=== PATIENT | male | born 1945 | race Caucasian/White ===

== ENCOUNTER 2017-08-18 08:48 | Inpatient (IN) | payer MEDICARE, OTHER ==
[~2017-08-18 08:48] MED LIST: CEFAZOLIN 1 GM INJ; ROCURONIUM 50 MG INJ
[2017-08-18] MEDS ORDERED: LACTATED RINGER'S 1,000 ML IV* (10:00)
[2017-08-18] MEDS: CEFAZOLIN 2 GM/50 ML (PMX) 50 ML IVPB (10:00)
[2017-08-18] MEDS ORDERED: CA CHLORIDE 10% 10 ML SYRINGE (12:01)
[2017-08-18] MEDS ORDERED: HEPARIN 1000 UNITS/ML 10 ML INJ (12:01)
[2017-08-18] MEDS ORDERED: SUCCINYLCHOLINE CHLORIDE 100 MG/5 ML SYG IV (12:08)
[2017-08-18] MEDS ORDERED: PROPOFOL 20 ML (12:08)
[2017-08-18] MEDS ORDERED: LIDOCAINE 1% (MDV) 20 ML INJ (12:09)
[2017-08-18] MEDS ORDERED: MIDAZOLAM 1 MG/ML 2 ML INJ (12:09)
[2017-08-18] MEDS ORDERED: FAMOTIDINE 20 MG INJ (12:14)
[2017-08-18] MEDS ORDERED: ONDANSETRON 4 MG INJ (12:14)
[2017-08-18] MEDS ORDERED: DEXAMETHASONE 4 MG/ML 1 ML INJ (12:14)
[2017-08-18] MEDS: CEFAZOLIN 1 GM/50 ML (PMX) 50 ML IVPB ×2 (12:30→20:18)
[2017-08-18] MEDS ORDERED: CEPASTAT LOZENGE MT (12:30)
[2017-08-18] MEDS ORDERED: ONDANSETRON 4 MG INJ IV ×2 (12:30→14:30)
[2017-08-18] MEDS ORDERED: CARISOPRODOL 350 MG TAB PO (12:30)
[2017-08-18] MEDS ORDERED: HYDROmorphONE 0.5 MG/0.5 ML SYG IV (12:30)
[2017-08-18] MEDS ORDERED: ACETAMINOPHEN 325 MG TAB PO (12:30)
[2017-08-18] MEDS ORDERED: traMADol 50 MG TAB PO (12:30)
[2017-08-18] MEDS ORDERED: NALOXONE (0.4 MG/ML) INJ IV (12:30)
[2017-08-18] MEDS ORDERED: DIPHENHYDRAMINE 50 MG INJ IV (12:30)
[2017-08-18] MEDS ORDERED: EPHEDrine 50 MG INJ (12:53)
[2017-08-18] MEDS: BUPIVACAINE 0.25% (MPF) 30 ML INJ (13:20)
[2017-08-18] MEDS: BUPIVACAINE 0.5%/EPI (SDV) 30 ML INJ (13:20)
[2017-08-18] MEDS: POLYMYXIN/BACITRACIN 1L IRRIG (13:21)
[2017-08-18] MEDS: SURGIFOAM POWDER 1 GM KIT (13:21)
[2017-08-18] MEDS: THROMBIN 5000 UNIT VIAL (13:22)
[2017-08-18] MEDS ORDERED: SUGAMMADEX SODIUM 200 MG/2 ML VIAL IV (14:30)
[2017-08-18] MEDS ORDERED: LABETALOL HCL 20MG INJ IV (14:30)
[2017-08-18] MEDS ORDERED: hydrALAzine 20 MG INJ IV (14:30)
[2017-08-18] MEDS ORDERED: OXYCODONE/ACETAMINOPHEN (5/325) TAB PO (14:30)
[2017-08-18] MEDS: HYDROmorphONE 1 MG/5 ML IV SYRINGE IV ×3 (15:03→15:19)
[2017-08-18] MEDS: HYDROmorphONE 0.2 MG/ML PCA IV (15:08)
[2017-08-18] MEDS: D5W-0.45 NACL + KCL 20 MEQ 1,000 ML IV ×2 (16:55→22:44)
[2017-08-18] MEDS: MAGNESIUM OXIDE 400 MG TAB PO (19:23)
[2017-08-18] MEDS ORDERED: PANTOPRAZOLE (EC) 40 MG TAB PO (20:30)
[2017-08-18] MEDS: TERAZOSIN 5 MG CAP PO (21:00)
[2017-08-18] MEDS: ATORVASTATIN 40 MG TAB PO (21:00)
[2017-08-18] MEDS: SODIUM CHLORIDE 5% 2.5 GM OPH OINT BOTH EYES (21:00)
[2017-08-18] MEDS: DOCUSATE SODIUM 100 MG CAP PO (22:42)
[2017-08-18] MEDS: clonAZEPAM 0.5 MG TAB PO (22:43)
[2017-08-18] MEDS: SODIUM CHLORIDE 5% BOTH EYES (22:43)
[2017-08-18] MEDS: hydrOXYzine PAMOATE 25 MG CAP PO (22:44)
[2017-08-18] MEDS: ZOLPIDEM 5 MG TAB PO (22:48)
[2017-08-18] MEDS: AL HYDROX/MG HYDROX/SIMETH 30 ML CUP PO (22:48)
[2017-08-18] MEDS ORDERED: hydrOXYzine PAMOATE 25 MG CAP PO (23:00)
[2017-08-19] MEDS: CEFAZOLIN 1 GM/50 ML (PMX) 50 ML IVPB (04:19)
[2017-08-19 05:40] LABS: ADD MAN DIFF? NO
[2017-08-19 05:42] LABS: BASOPHILS % 0.2 % (0.0-2.0); EOSINOPHILS % 0.2 % (0.0-7.0); HEMATOCRIT 36.5 % (42.0-52.0); HEMOGLOBIN 12.2 g/dl (14.0-18.0); LYMPHOCYTES # 1.3 10^3/ul (0.8-2.9); LYMPHOCYTES % 10.4 % (15.0-51.0); MEAN CORPUSCULAR HEMOGLOBIN 31.7 pg (29.0-33.0); MEAN CORPUSCULAR HGB CONC 33.4 g/dl (32.0-37.0); MEAN CORPUSCULAR VOLUME 94.8 fl (82.0-101.0); MEAN PLATELET VOLUME 10.4 fl (7.4-10.4); MONOCYTE # 1.1 10^3/ul (0.3-0.9); MONOCYTES % 8.5 % (0.0-11.0); NEUTROPHILS % 80.1 % (39.0-77.0); PLATELET COUNT 170 10^3/UL (140-415); RED BLOOD COUNT 3.85 10^6/ul (4.70-6.10); RED CELL DISTRIBUTION WIDTH 12.2 % (11.5-14.5)
[2017-08-19 05:42] LABS: WHITE BLOOD COUNT 12.5 10^3/ul (4.8-10.8)
[2017-08-19] MEDS: PANTOPRAZOLE (EC) 40 MG TAB PO (06:03)
[2017-08-19 06:14] LABS: ANION GAP 13 (8-16); BLOOD UREA NITROGEN 21 mg/dl (7-20); CALCIUM 8.5 mg/dl (8.4-10.2); CARBON DIOXIDE 29 mmol/L (21-31); CHLORIDE 104 mmol/L (97-110); CREATININE 0.83 mg/dl (0.61-1.24); GLUCOSE 118 mg/dl (70-220); MAGNESIUM 2.2 mg/dl (1.7-2.5); POTASSIUM 4.2 mmol/L (3.5-5.1); SODIUM 142 mmol/L (135-144)
[2017-08-19] MEDS: D5W-0.45 NACL + KCL 20 MEQ 1,000 ML IV (08:15)
[2017-08-19] MEDS ORDERED: CALCIUM/VITAMIN D (500/200) TAB PO ×2 (09:00→21:00)
[2017-08-19] MEDS: hydrOXYzine PAMOATE 25 MG CAP PO (09:00)
[2017-08-19] MEDS ORDERED: hydrOXYzine PAMOATE 25 MG CAP PO (09:00)
[2017-08-19] MEDS ORDERED: MULTIVITAMINS THERAPEUTIC TAB PO ×2 (09:00→21:00)
[2017-08-19] MEDS: FUROSEMIDE 20 MG TAB PO (10:05)
[2017-08-19] MEDS: clonAZEPAM 0.5 MG TAB PO (10:05)
[2017-08-19] MEDS: ATORVASTATIN 40 MG TAB PO (10:10)
[2017-08-19] MEDS: LOSARTAN 25 MG TAB PO (10:13)
[2017-08-19] MEDS: DOCUSATE SODIUM 100 MG CAP PO (10:14)
[2017-08-19] MEDS: LORATADINE 10 MG TAB PO (10:15)
[2017-08-19] MEDS: FOLIC ACID 1 MG TAB PO (10:15)
[2017-08-19] MEDS: traMADol 50 MG TAB PO (10:16)
[2017-08-19] MEDS: POTASSIUM CHLORIDE (SR) 10 MEQ TAB PO (11:35)
[2017-08-19] MEDS: BISACODYL 10 MG SUPP PR (12:59)
[2017-08-19] MEDS ORDERED: MAGNESIUM OXIDE 400 MG TAB PO (21:30)
== END 2017-08-19 15:30 | disposition home or self-care (01) | DRG 520 ==
LOC: REC 08:48 → MS1 16:55
PROC: 01NB0ZZ Release Lumbar Nerve, Open Approach (ICD-10-PCS; principal; 2017-08-18 12:00)
PROC: 00BT0ZZ Excision of Spinal Meninges, Open Approach (ICD-10-PCS; 2017-08-18 12:00)
DX: M48.062 Spinal stenosis, lumbar region with neurogenic claudication (principal); M46.06 Spinal enthesopathy, lumbar region; M54.16 Radiculopathy, lumbar region; G96.19 Other disorders of meninges, not elsewhere classified; I10 Essential (primary) hypertension; E78.5 Hyperlipidemia, unspecified; F41.9 Anxiety disorder, unspecified
CPT/HCPCS: 72020; 80048; 83735; 85025; 88304; 88311; 97116; 97162; 97530

== ENCOUNTER → 2017-08-21 | Outpatient (CLI) | payer MEDICARE, OTHER | END | disposition home or self-care (01) | LOC: RAD 15:26 | DX: M79.662 Pain in left lower leg (principal); M79.661 Pain in right lower leg | CPT/HCPCS: 93970 ==